=== PATIENT | male | born 1955 | race Caucasian/White ===

== ENCOUNTER 2019-02-27 06:20 | Day surgery (SDC) | payer BC ==
[2019-02-24 11:13] VITALS: BMI 36.9
[~2019-02-27 06:20] MED LIST: DEXAMETHASONE SOD PHOSPHATE 10 MG/ML 1 ML VIAL IV ONE; HEPARIN SODIUM,PORCINE 5,000 UNIT/ML 1 ML VIAL SQ ONE; MIDAZOLAM 2 MG/2 ML VIAL IV PRN; ONDANSETRON 4 MG/2 ML VIAL IVP ONE; SCOPOLAMINE 1.5MG/72HR PATCH TRANSDERM ONE
[2019-02-27] MEDS: LIDOCAINE 1% 20 ML VIAL (10MG/ML) FOR IV START INTRADERMA PRN ×2 (07:00→07:05)
[2019-02-27 07:21] LABS: Basophils % (A) 1 %; Eosinophils # (A) 0.2 k/uL (0-0.7); Eosinophils % (A) 3 %; HGB 15.2 gm/dL (13.0-17.5); Lymphocytes # (A) 1.2 k/uL (1.0-4.8); Lymphocytes % (A) 18 %; MCH 28.9 pg (25.0-35.0); MCV 87.5 fL (80.0-100.0); Mean Platelet Volume 7.1; Monocytes # (A) 0.6 k/uL (0-1.0); Monocytes % (A) 9 %; Neutrophils # (A) 4.4 k/uL (1.3-7.7); Neutrophils % (A) 68 %; Platelet Count 218 k/uL (150-450); RBC 5.26 m/uL (4.30-5.90); RDW 15.3 % (11.5-15.5); WBC 6.5 k/uL (3.8-10.6)
--- NOTE | 2019-02-27 07:25 | P.GSHP ---
History of Present Illness H&P Date: 02/27/19 CHIEF COMPLAINT: Inguinal hernia, left HISTORY OF PRESENT ILLNESS: The patient is a 63-year-old male who presents with a history of swelling and pain along the left groin. He's noted increased swelling including pain of the area. Now he presents for repair of his inguinal hernia. PAST MEDICAL HISTORY: Please see list. PAST SURGICAL HISTORY: Please see list. MEDICATIONS: Please see list. ALLERGIES: Please see list. SOCIAL HISTORY: No illicit drug use FAMILY HISTORY: No reports of Crohn disease or ulcerative colitis. REVIEW OF ORGAN SYSTEMS: CONSTITUTIONAL: No reports of fevers or chills. No reports of weight loss despite prior attempts. GI: Denies any blood in stools or constipation. PHYSICAL EXAM: VITAL SIGNS: Stable GENERAL: Well-developed pleasant male in no acute distress. HEENT: No scleral icterus. Extraocular movements grossly intact. Moist buccal mucosa. NECK: Supple without lymphadenopathy. CHEST: Unlabored respirations. Equal bilateral excursions. CARDIOVASCULAR: Regular rate and rhythm. Distal 2+ pulses. ABDOMEN: Soft, nondistended. No peritoneal signs. Palpable defect of the left groin. MUSCULOSKELETAL: No clubbing, cyanosis, or edema. ASSESSMENT: 1. Inguinal hernia, left PLAN: 1. Recommend proceeding with a robotic inguinal repair with mesh with possible bilateral approach. 2. Benefits and risks of surgical intervention was discussed including possibility of open technique. 3. DVT prophylaxis. 4. Antibiotic prophylaxis. Past Medical History Past Medical History: Hyperlipidemia, Hypertension, Thyroid Disorder Additional Past Medical History / Comment(s): THYROID NODULE, SEASONAL ALLERGIES. LT INGUINAL HERNIA. History of Any Multi-Drug Resistant Organisms: None Reported Past Surgical History: Cholecystectomy, Tonsillectomy Additional Past Surgical History / Comment(s): LARGE TUMOR EXC THROAT; CYST EXC SPINE. THYROID SURG. Past Anesthesia/Blood Transfusion Reactions: Motion Sickness Smoking Status: Never smoker - Past Family History Mother Family Medical History: No Reported History Medications and Allergies Home Medications Medication Instructions Recorded Confirmed Type Atorvastatin [Lipitor] 20 mg PO HS 05/11/15 02/27/19 History Cetirizine HCl [Zyrtec] 10 mg PO DAILY 05/11/15 02/27/19 History Cholecalciferol [Vitamin D3] 3,000 unit PO DAILY 05/11/15 02/27/19 History Lisinopril [Zestril] 40 mg PO QA 05/11/15 02/27/19 History Acetaminophen [Tylenol Extra 1,000 mg PO BID 02/24/19 02/27/19 History Strength] Metoclopramide HCl [Reglan] 10 mg PO TID PRN 02/24/19 02/27/19 History Multivitamin/Iron/Folic Acid 1 each PO DAILY 02/24/19 02/27/19 History [Centrum Adults Tablet] Allergies Allergy/AdvReac Type Severity Reaction Status Date / Time latex Allergy Swelling Verified 02/27/19 06:50 venom-honey bee Allergy Swelling Verified 02/27/19 06:50 [bee venom (honey bee)] Results - Labs 02/27/19 07:11
[2019-02-27 07:35] VITALS: TEMP 97.4
[2019-02-27] MEDS: LACTATED RINGERS 1,000 ML IV SCH ×2 (07:36→12:30)
[2019-02-27] MEDS ORDERED: NEOSTIGMINE 1 MG/ML 10 ML VIAL ONE (07:52)
[2019-02-27] MEDS ORDERED: ROCURONIUM BROMIDE 10 MG/ML 10 ML VIAL IV ONE (07:52)
[2019-02-27] MEDS ORDERED: PROPOFOL 10 MG/ML 20 ML VIAL IV ONE (07:52)
[2019-02-27] MEDS ORDERED: DEXAMETHASONE SOD PHOSPHATE 4 MG/ML 1 ML VIAL ONE (07:52)
[2019-02-27] MEDS ORDERED: LIDOCAINE 1% INJ 10MG/ML (20 ML MDV) ONE (07:52)
[2019-02-27] MEDS ORDERED: ROPIVACAINE 5 MG/ML 30 ML VIAL ONE (07:52)
[2019-02-27] MEDS ORDERED: SUCCINYLCHOLINE CHLORIDE VIAL 200 MG/10 ML VIAL IV ONE (07:52)
[2019-02-27] MEDS ORDERED: GLYCOPYRROLATE 0.2 MG/ML 2 ML VIAL ONE (07:52)
[2019-02-27] MEDS ORDERED: MIDAZOLAM 2 MG/2 ML VIAL ONE (07:52)
[2019-02-27] MEDS ORDERED: PHENYLEPHRINE-0.9% NACL SYG 1 MG/10 ML SYRINGE ONE (07:52)
[2019-02-27] MEDS ORDERED: fentaNYL (PF) 50 MCG/ML 2 ML AMP ONE (07:52)
[2019-02-27] MEDS: ceFAZolin 3 GM in SODIUM CHLORIDE 0.9% 100 ML IVPB ONE ×2 (07:57→08:43)
[2019-02-27] MEDS ORDERED: LIDOCAINE 1%-EPI 1:100,000 30 ML VIAL SQ ONE (08:43)
--- NOTE | 2019-02-27 09:00 | P.ANPRN ---
Procedure Note - Anesthesia - Nerve Block Performed Left Transversus Abdominis Single Time Out Performed: Yes Date of Procedure: 02/27/19 Procedure Start Time: 07:15 Procedure Stop Time: 07:26 Location of Patient Procedure: PreOp Indication: Acute Post-Operative Pain, Requested by physician Sedation Type: Sedate with meaningful contact maintained Preparation: Sterile Prep Position: Supine Needle Types: Pajunk Needle Gauge: 21 Technique: Ultrasound (ropi .5% 30cc plus dexamethasone 4mg) Blood Aspirated: No Pain Paresthesia on Injection Noted: No Resistance on Injection: Normal Events: Uneventful and Well Tolerated
--- NOTE | 2019-02-27 10:52 | P.OP ---
Date of Procedure: 02/27/19 Anesthesia: local Description of Procedure: Date of Procedure: 02/27/19 Description of Procedure: SURGEON: DEA GARCES MD PREOPERATIVE DIAGNOSES: 1. Initial left inguinal hernia 2. Right inguinal pain 3. Obstructive sleep apnea 4. Morbid obesity due to excess calories, BMI 37.0 5. Hyperlipidemia 6. Hypertensive heart disease POSTOPERATIVE DIAGNOSES: 1. Initial left inguinal hernia 2. Right inguinal pain 3. Obstructive sleep apnea 4. Morbid obesity due to excess calories, BMI 37.0 5. Hyperlipidemia 6. Hypertensive heart disease 7. Left incarcerated inguinal hernia with large bowel obstruction 8. Initial right inguinal hernia indirect reducible OPERATION: 1. Robotic-assisted da Tana Xi laparoscopic repair of initial incarcerated left indirect inguinal hernia with large bowel obstruction with mesh, 11.[address] 2. Resection of incarcerated left inguinal lipoma, 4 cm x 5cm 3. Robotic-assisted da Tana Xi laparoscopic repair of initial right indirect inguinal hernia with mesh, 11.[address] ESTIMATED BLOOD LOSS: 5 mL. SPECIMENS: 1. Incarcerated left inguinal hernia sac 2. Left inguinal lipoma COMPLICATIONS: None. Anesthesia: GETA, regional, local Operative Findings: 1. Pantaloon defect of the left side with direct inguinal hernia of large lipoma 2. Left indirect with incarcerated sigmoid colon and large bowel obstruction reduced without ischemia 3. Closure of defects using soft tissue repair of right side INDICATIONS: The patient is a 63-year-old male who presents with history of left inguinal hernia. Now he presents for definitive surgical intervention. Laparoscopic versus open and robotic approaches were discussed including bilateral approach. Benefits and risks including bleeding, infection, chronic groin pain were reviewed. Placement of mesh was also described. Informed consent was obtained. DESCRIPTION: In the preoperative area, an abdominal block was placed per anesthesia. The patient was brought to the operating room and initially laid in supine position. The abdomen had been prepped and draped in standard sterile fashion. Ioban draping was also placed. Prior to incision, a timeout protocol was confirmed with surgical team regarding patient's name including procedures to be performed. Initial positioning for the robotic assisted ports were selected whereby 20 cm s uperior to the target anatomy, 0 degree 5 mm laparoscopic trocar entry was performed at the left upper quadrant. The abdomen was insufflated to 15 mmHg which he had tolerated well. Diagnostic laparoscopy demonstrated no injury to bowel, viscera or mesentery. Incarcerated sigmoid colon was found along the left groin with a direct and indirect hernia. Next, along the epigastrium, 8 mm robot trocar was placed. An 8-mm robotic trocar was placed under direct visualization at the right upper quadrant. An 8 mm port was placed at the left upper quadrant. All trocars were positioned between 10-cm apart from each other. The ClusterFlunk XI robot was primed, draped, prepared for docking along upper abdomen of the patient. The patient was positioned 16 steep Trendelenburg position. I then went to the ClusterFlunk Xi console. The switchboard operator assistant was at bedside for exchange of the robot arms and equipment. A very large left inguinal defect was confirmed as the sigmoid colon was reduced from the left groin after direct pressure over the inguinal area was placed by the switchboard operator assistant. Next, careful attention along the left groin demonstrated 4-cm hernia with the sac extending to the scrotum. A large indirect and direct hernia was confirmed. The left inguinal hernia sac was evaginated whereby the peritoneum was scored using Endo scissors with cautery. As the hernia sac extended into the groin, complete resection of the sac was incomplete. Additionally, a 4 x 5 cm left inguinal lipoma was reduced. The peritoneal sac of the hernia was stripped along a tightly incarcerated inguinal hernia involving a large 4-cm left inguinal lipoma. The lipoma and sac was resected and then passed off for further pathological analysis. The size of the hernia defect was 4 cm with intraopera tive films obtained. A large left inguinal lipoma was also resected and passed off from the direct hernia. Using a 2-0 VLOC, the peritoneal defect of the right inguinal hernia site was closed using a running suture. The defect was found to be completely closed with complete reduction of the right direct inguinal hernia was confirmed. As an onlay, an 11.[address] mesh by HZO was initially cut in half and entered into the abdominal cavity via the 8 mm trocar. The mesh was tacked to the pelvis using 2-0 VLOC 9-inch length sutures. A final endoscopic imaging was obtained. The robot was undocked from the patient's bedside. I then rescrubbed into the case. Insufflation was released from the abdominal cavity and all instruments were removed from the abdominal cavity. The rest of incisions were reapproximated using 4-0 Monocryl in a running subcuticular fashion. Local anesthetic was placed along the incision including for a bilateral groin block. Incisions were cleansed using dilute hydrogen peroxide. Liquid glue was applied to the skin. At the end of the procedure, the needle, sponge and instrument counts had been verified correct by the certified surgical assistant. The patient had tolerated the procedure well and was taken to the postanesthesia care unit in stable condition. Plan - Discharge Summary Discharge Rx Participant: Yes New Discharge Prescriptions: New Ibuprofen [Motrin] 600 mg PO Q8HR PRN #30 tab PRN Reason: Pain HYDROcodone/APAP 5-325MG [Parkin 5-325] 1 tab PO Q6HR PRN 3 Days #10 tab PRN Reason: Pain Tamsulosin [Flomax] 0.4 mg PO DAILY #7 cap Continue Lisinopril [Zestril] 40 mg PO QAM Cholecalciferol [Vitamin D3 (25 Mcg = 1000 Iu)] 3,000 unit PO DAILY Cetirizine HCl [Zyrtec] 10 mg PO DAILY Atorvastatin [Lipitor] 20 mg PO HS Acetaminophen [Tylenol Extra Strength] 1,000 mg PO BID Metoclopramide HCl [Reglan] 10 mg PO TID PRN PRN Reason: MOTILITY Multivitamin/Iron/Folic Acid [Centrum Adults Tablet] 1 each PO DAILY Discharge Medication List Atorvastatin [Lipitor] 20 mg PO HS 05/11/15 [History] Cetirizine HCl [Zyrtec] 10 mg PO DAILY 05/11/15 [History] Cholecalciferol [Vitamin D3 (25 Mcg = 1000 Iu)] 3,000 unit PO DAILY 05/11/15 [History] Lisinopril [Zestril] 40 mg PO QAM 05/11/15 [History] Acetaminophen [Tylenol Extra Strength] 1,000 mg PO BID 02/24/19 [History] Metoclopramide HCl [Reglan] 10 mg PO TID PRN 02/24/19 [History] Multivitamin/Iron/Folic Acid [Centrum Adults Tablet] 1 each PO DAILY 02/24/19 [History] HYDROcodone/APAP 5-325MG [Parkin 5-325] 1 tab PO Q6HR PRN 3 Days #10 tab 02/27/19 [Rx] Ibuprofen [Motrin] 600 mg PO Q8HR PRN #30 tab 02/27/19 [Rx] Tamsulosin [Flomax] 0.4 mg PO DAILY #7 cap 02/27/19 [Rx] Follow up Appointment(s)/Referral(s): Dea Garces MD [STAFF PHYSICIAN] - 03/04/19 Patient Instructions/Handouts: *[facility]gery [facility] - (Anesthesia) Discharge Instructions Outpatient Surgery, Laparoscopic Herniorrhaphy (DC), Inguinal Hernia Repair (DC) Activity/Diet/Wound Care/Special Instructions: No lifting over 10 pounds 10 days, March 08. November shower. No bath tub soaks. Use medications for urinating. Discharge Disposition: HOME SELF-CARE
[2019-02-27] MEDS ORDERED: TAMSULOSIN 0.4 MG CAP.ER.24H PO STA (10:54)
[2019-02-27 10:55] VITALS: RESP 16
[2019-02-27] MEDS: HYDROmorphone 0.5 MG/0.5 ML SYRINGE IVP PRN ×2 (11:20→11:40)
[2019-02-27 13:11] VITALS: BP 128/74; PULSE 66
== END 2019-02-27 13:43 | disposition home or self-care (01) ==
LOC: OR 06:20
PROVIDERS: ATTEND Surgery Plastic and Reconstructive Surgery
DX: K40.00 Bilateral inguinal hernia, with obstruction, without gangrene, not specified as recurrent (principal); E66.01 Morbid (severe) obesity due to excess calories; E78.5 Hyperlipidemia, unspecified; G47.33 Obstructive sleep apnea (adult) (pediatric); I11.9 Hypertensive heart disease without heart failure; Z68.37 Body mass index [BMI] 37.0-37.9, adult; Z91.030 Bee allergy status; Z91.040 Latex allergy status; Z79.899 Other long term (current) drug therapy; Z88.0 Allergy status to penicillin; D17.79 Benign lipomatous neoplasm of other sites
CPT/HCPCS: 64488; 85025; 88302; 49650; C1781; J2250; J0330; J1644; J1100 ×2; J2710; J0690; J2405; J2001; J3010; J2795; J2370; J2704; J1170

== ENCOUNTER 2023-02-01 11:35 | Day surgery (SDC) | payer BC, MEDICARE ==
[~2023-02-01 11:35] MED LIST changes: -DEXAMETHASONE SOD PHOSPHATE 10 MG/ML 1 ML VIAL IV ONE; -HEPARIN SODIUM,PORCINE 5,000 UNIT/ML 1 ML VIAL SQ ONE; +LACTATED RINGERS 1,000 ML IV SCH; +LIDOCAINE 1% (10MG/ML) FOR IV START INTRADERMA PRN; -MIDAZOLAM 2 MG/2 ML VIAL IV PRN; -ONDANSETRON 4 MG/2 ML VIAL IVP ONE; -SCOPOLAMINE 1.5MG/72HR PATCH TRANSDERM ONE
[2023-02-01 12:02] VITALS: TEMP 97
[2023-02-01] MEDS ORDERED: PROPOFOL 10 MG/ML 20 ML VIAL IV ONE (12:39)
--- NOTE | 2023-02-01 12:46 | P.GSHP ---
History of Present Illness H&P Date: 02/01/23 CHIEF COMPLAINT: Colon screen HISTORY OF PRESENT ILLNESS: The patient is a 67-year-old male who presents for colon screen. Lower endoscopy was offered for further evaluation and management. PAST MEDICAL HISTORY: Please see list. PAST SURGICAL HISTORY: Please see list. MEDICATIONS: Please see list. ALLERGIES: Please see list. SOCIAL HISTORY: No illicit drug use FAMILY HISTORY: No reports of Crohn disease or ulcerative colitis. REVIEW OF ORGAN SYSTEMS: CONSTITUTIONAL: No reports of fevers or chills. PHYSICAL EXAM: VITAL SIGNS: Stable GENERAL: Well-developed pleasant in no acute distress. HEENT: No scleral icterus. Extraocular movements grossly intact. Moist buccal mucosa. NECK: Supple without lymphadenopathy. CHEST: Unlabored respirations. Equal bilateral excursions. CARDIOVASCULAR: Regular rate and rhythm. Distal 2+ pulses. ABDOMEN: Soft, nontender, nondistended. MUSCULOSKELETAL: No clubbing, cyanosis, or edema. ASSESSMENT: 1. Colon screen. PLAN: 1. Recommend proceeding with a lower endoscopy Past Medical History Past Medical History: Hyperlipidemia, Hypertension, Renal Disease, Thyroid Disorder Additional Past Medical History / Comment(s): Routine colonoscopy, past benign colon polyp, THYROID NODULE, SEASONAL ALLERGIES, LT INGUINAL HERNIA/pain, low back pain, decreased kidney function. History of Any Multi-Drug Resistant Organisms: None Reported Past Surgical History: Cholecystectomy, Joint Replacement, Tonsillectomy Additional Past Surgical History / Comment(s): COLONOSCOPIES, LARGE TUMOR EXC THROAT; CYST EXC SPINE. THYROID SURG/benign tumor. total R hip arthroplasty. Past Anesthesia/Blood Transfusion Reactions: Motion Sickness Additional Past Anesthesia/Blood Transfusion Reaction / Comment(s): Pt has never received blood. Smoking Status: Never smoker - Past Family History Father Family Medical History: No Reported History Mother Family Medical History: No Reported History Medications and Allergies Home Medications Medication Instructions Recorded Confirmed Type Atorvastatin [Lipitor] 40 mg PO HS 05/11/15 01/31/23 History Cholecalciferol [Vitamin D3 (25 3,000 unit PO QAM 05/11/15 02/01/23 History Mcg = 1000 Iu)] lisinopriL [Zestril] 40 mg PO HS 05/11/15 01/31/23 History Multivitamin/Iron/Folic Acid 1 each PO DAILY 02/24/19 01/31/23 History [Centrum Adults Tablet] Chlorthalidone 25 mg PO QAM 01/31/23 01/31/23 History Multivitamin [Multivitamins Adult 1 tab PO QAM 01/31/23 01/31/23 History Gummies] NIFEdipine [Procardia XL] 90 mg PO QAM 01/31/23 02/01/23 History carvediloL 25 mg PO BID 01/31/23 02/01/23 History cloNIDine HCL [Catapres] 0.3 mg PO BID 01/31/23 01/31/23 History traZODone HCL 100 mg PO HS 01/31/23 01/31/23 History Allergies Allergy/AdvReac Type Severity Reaction Status Date / Time latex Allergy Swelling Verified 02/01/23 11:55 Penicillins Allergy Swelling Verified 02/01/23 11:55 venom-honey bee Allergy Swelling Verified 02/01/23 11:55 [bee venom (honey bee)] Surgical - Exam Vital Signs Temp Pulse Resp BP Pulse Ox 97.0 F L 67 18 104/61 95 02/01/23 11:55 02/01/23 11:55 02/01/23 11:55 02/01/23 11:55 02/01/23 11:55
--- NOTE | 2023-02-01 13:09 | P.PCN ---
Date of Procedure: 02/01/23 Description of Procedure: PREOPERATIVE DIAGNOSIS: Colonoscopy screening. Personal history colon polyps POSTOPERATIVE DIAGNOSIS: Colonoscopy screening. Personal history colon polyps OPERATION: Colonoscopy to the cecum, ileocecal valve and appendiceal orifice. SURGEON: Dea Garces MD. ANESTHESIA: MAC. INDICATIONS: The patient is a 67-year-old male who presents for colonoscopy screening. Benefits and risks were described and informed consent was obtained. DESCRIPTION OF PROCEDURE: The patient had undergone Gatorade prep. The patient had been brought into the operating room and laid in the left lateral decubitus position. After adequate intravenous sedation, the rectum was examined with 2% lidocaine jelly. No external hemorrhoids were encountered. The rectal tone was within normal limits. No lesions were palpated in the rectal vault. An Olympus colonoscope was advanced until the cecum, ileocecal valve and appendiceal orifice were clearly viewed. The prep was good. No scattered diverticulosis was encountered. No colonic polyps were found. No evidence of focal colitis was found. Retroflexion of the scope demonstrated grade 1 internal hemorrhoids without active bleeding or inflammation. The colon was desufflated. The patient had tolerated the procedure well. Withdrawal time was over 6 minutes. FINDINGS: Aronchick preparation quality scale 2 (1-5) Internal hemorrhoids, grade 1 No external prolapsed hemorrhoids. No arteriovenous malformations. No adenomatous polyps. No focal colitis. RECOMMENDATIONS: Lower endoscopy in 5 years, 2027. Plan - Discharge Summary Discharge Rx Participant: No New Discharge Prescriptions: Continue lisinopriL [Zestril] 40 mg PO HS Cholecalciferol [Vitamin D3 (25 Mcg = 1000 Iu)] 3,000 unit PO QAM Atorvastatin [Lipitor] 40 mg PO HS Multivitamin/Iron/Folic Acid [Centrum Adults Tablet] 1 each PO DAILY cloNIDine HCL [Catapres] 0.3 mg PO BID traZODone HCL 100 mg PO HS Multivitamin [Multivitamins Adult Gummies] 1 tab PO QAM carvediloL 25 mg PO BID NIFEdipine [Procardia XL] 90 mg PO QAM Chlorthalidone 25 mg PO QAM Discharge Medication List Atorvastatin [Lipitor] 40 mg PO HS 05/11/15 [History] Cholecalciferol [Vitamin D3 (25 Mcg = 1000 Iu)] 3,000 unit PO QAM 05/11/15 [History] lisinopriL [Zestril] 40 mg PO HS 05/11/15 [History] Multivitamin/Iron/Folic Acid [Centrum Adults Tablet] 1 each PO DAILY 02/24/19 [History] Chlorthalidone 25 mg PO QAM 01/31/23 [History] Multivitamin [Multivitamins Adult Gummies] 1 tab PO QAM 01/31/23 [History] NIFEdipine [Procardia XL] 90 mg PO QAM 01/31/23 [History] carvediloL 25 mg PO BID 01/31/23 [History] cloNIDine HCL [Catapres] 0.3 mg PO BID 01/31/23 [History] traZODone HCL 100 mg PO HS 01/31/23 [History] Follow up Appointment(s)/Referral(s): Dea Garces MD [STAFF PHYSICIAN] - 02/27/23 9:30 am Patient Instructions/Handouts: *[facility] - (Anesthesia) Discharge Instructions Outpatient Surgery Activity/Diet/Wound Care/Special Instructions: Repeat colonoscopy in 5 years2027 Discharge Disposition: HOME SELF-CARE
[2023-02-01 13:22] VITALS: RESP 20
[2023-02-01 13:35] VITALS: BP 108/60; PULSE 78
== END 2023-02-01 13:45 | disposition home or self-care (01) ==
LOC: ORWHC2ENDO 11:35
PROVIDERS: ATTEND Surgery Plastic and Reconstructive Surgery
DX: Z12.11 Encounter for screening for malignant neoplasm of colon (principal); K64.0 First degree hemorrhoids; I10 Essential (primary) hypertension; E78.5 Hyperlipidemia, unspecified; E03.9 Hypothyroidism, unspecified; N28.9 Disorder of kidney and ureter, unspecified; Z90.49 Acquired absence of other specified parts of digestive tract; Z79.899 Other long term (current) drug therapy; Z91.040 Latex allergy status; Z88.0 Allergy status to penicillin; Z91.030 Bee allergy status
CPT/HCPCS: J2704; G0121

== ENCOUNTER → 2023-03-09 | Day surgery (SDC) | payer MEDICARE ==
[2023-03-05 15:42] VITALS: BMI 36.5
[~2023-03-09] MED LIST changes: +ACETAMINOPHEN TAB 500 MG TAB PO PRN; +DEXAMETHASONE SOD PHOSPHATE 4 MG/ML 1 ML VIAL IVP ONE; +GLYCOPYRROLATE 0.2 MG/ML 2 ML VIAL ONE; +HEPARIN SODIUM,PORCINE/PF 5,000 UNIT/0.5 ML SYRINGE SQ PRN; +HYDROmorphone (PF) 1 MG/ML ONE; +HYDROmorphone 0.5 MG/0.5 ML SYRINGE IVP PRN; +LACTATED RINGERS 1,000 ML IV ONE; -LIDOCAINE 1% (10MG/ML) FOR IV START INTRADERMA PRN; +LIDOCAINE 1%-EPI 1:100,000 50 ML VIAL SQ ONE; +LIDOCAINE 2% INJ 20 MG/ML (2 ML VIAL) ONE; +MELOXICAM 7.5 MG TAB PO PRN; +MIDAZOLAM 2 MG/2 ML VIAL IV PRN; +MIDAZOLAM 2 MG/2 ML VIAL ONE; +NEOSTIGMINE 1 MG/ML 10 ML VIAL ONE; +ONDANSETRON 4 MG/2 ML VIAL IVP PRN; +PHENYLEPHRINE-0.9% NACL SYG 1,000 MCG/10 ML SYRINGE ONE; +PROPOFOL 10 MG/ML 20 ML VIAL IV ONE; +ROCURONIUM 10 MG/ML (5 ML VIAL) IV ONE; +SUCCINYLCHOLINE CHLORIDE 200 MG/10 ML VIAL IV ONE; +TAMSULOSIN 0.4 MG CAP.ER.24H PO STA; +fentaNYL (PF) 50 MCG/ML 2 ML AMP ONE; +oxyCODONE-APAP 7.5-325MG 1 EACH TAB PO PRN
--- NOTE | 2023-03-09 06:32 | P.GSHP ---
History of Present Illness H&P Date: 03/09/23 CHIEF COMPLAINT: Inguinal hernia, bilateral HISTORY OF PRESENT ILLNESS: The patient is a 67-year-old male who presents with a history of swelling and pain along the groins. He has had prior repair of inguinal hernias. He's noted increased swelling including pain of the area. Now he presents for exploration and repair of recurrent inguinal hernia. PAST MEDICAL HISTORY: Please see list. PAST SURGICAL HISTORY: Please see list. MEDICATIONS: Please see list. ALLERGIES: Please see list. SOCIAL HISTORY: No illicit drug use FAMILY HISTORY: No reports of Crohn disease or ulcerative colitis. REVIEW OF ORGAN SYSTEMS: CONSTITUTIONAL: No reports of fevers or chills. No reports of weight loss despite prior attempts. GI: Denies any blood in stools or constipation. PHYSICAL EXAM: VITAL SIGNS: Stable GENERAL: Well-developed pleasant male in no acute distress. HEENT: No scleral icterus. Extraocular movements grossly intact. Moist buccal mucosa. NECK: Supple without lymphadenopathy. CHEST: Unlabored respirations. Equal bilateral excursions. CARDIOVASCULAR: Regular rate and rhythm. Distal 2+ pulses. ABDOMEN: Soft, nondistended. No peritoneal signs. Palpable defect of the groin MUSCULOSKELETAL: No clubbing, cyanosis, or edema. ASSESSMENT: 1. Inguinal hernia, bilateral PLAN: 1. Recommend proceeding with a robotic inguinal repair with mesh with bilateral approach. 2. Benefits and risks of surgical intervention was discussed including possibility of open technique. 3. DVT prophylaxis. 4. Antibiotic prophylaxis. 5. Non narcotic pain management including abdominal wall block described 6. Blood sugar glucose described. 7. Weight loss management described. Past Medical History Past Medical History: Hyperlipidemia, Hypertension, Renal Disease, Thyroid Disorder Additional Past Medical History / Comment(s): past benign colon polyp, THYROID NODULE, SEASONAL ALLERGIES, LT INGUINAL HERNIA/pain, low back pain, decreased kidney function. History of Any Multi-Drug Resistant Organisms: None Reported Past Surgical History: Cholecystectomy, Joint Replacement, Tonsillectomy Additional Past Surgical History / Comment(s): COLONOSCOPIES, LARGE TUMOR EXC THROAT, CYST EXC SPINE, THYROID SURG/benign tumor, total R hip arthroplasty. Past Anesthesia/Blood Transfusion Reactions: Motion Sickness Additional Past Anesthesia/Blood Transfusion Reaction / Comment(s): Pt has never received blood. Past Psychological History: Anxiety, Depression Smoking Status: Never smoker Past Alcohol Use History: Occasional Additional Past Alcohol Use History / Comment(s): DRINKS FEW BEER ON WEEKENDS. Past Drug Use History: None Reported - Past Family History Father Family Medical History: No Reported History Mother Family Medical History: No Reported History Medications and Allergies Home Medications Medication Instructions Recorded Confirmed Type Atorvastatin [Lipitor] 40 mg PO HS 05/11/15 03/05/23 History Cholecalciferol [Vitamin D3 (25 3,000 unit PO QAM 05/11/15 03/05/23 History Mcg = 1000 Iu)] lisinopriL [Zestril] 40 mg PO HS 05/11/15 03/05/23 History Chlorthalidone 25 mg PO QAM 01/31/23 03/05/23 History Multivitamin [Multivitamins Adult 1 tab PO QAM 01/31/23 03/05/23 History Gummies] NIFEdipine [Procardia XL] 90 mg PO QAM 01/31/23 03/05/23 History carvediloL 25 mg PO BID 01/31/23 03/05/23 History cloNIDine HCL [Catapres] 0.3 mg PO BID 01/31/23 03/05/23 History traZODone HCL 100 mg PO HS 01/31/23 03/05/23 History Allergies Allergy/AdvReac Type Severity Reaction Status Date / Time latex Allergy Swelling Verified 03/05/23 15:34 Penicillins Allergy Swelling Verified 03/05/23 15:34 venom-honey bee Allergy Swelling Verified 03/05/23 15:34 [bee venom (honey bee)]
[2023-03-09 12:55] LABS: Glucose,Whole Blood 103 mg/dL (70-110)
[2023-03-09 13:11] LABS: Basophils % (A) 0 %; Eosinophils # (A) 0.1 k/uL (0-0.7); Eosinophils % (A) 1 %; HCT 39.2 % (39.0-53.0); HGB 13.5 gm/dL (13.0-17.5); Lymphocytes # (A) 1.7 k/uL (1.0-4.8); Lymphocytes % (A) 16 %; MCH 29.8 pg (25.0-35.0); MCHC 34.3 g/dL (31.0-37.0); MCV 86.8 fL (80.0-100.0); Mean Platelet Volume 7.5; Monocytes # (A) 0.6 k/uL (0-1.0); Monocytes % (A) 5 %; Neutrophils # (A) 7.8 k/uL (1.3-7.7); Neutrophils % (A) 76 %; Platelet Count 229 k/uL (150-450); RBC 4.52 m/uL (4.30-5.90); WBC 10.3 k/uL (3.8-10.6)
[2023-03-09 13:17] LABS: ALT 36 U/L (4-49); AST 29 U/L (17-59); African American GFR (CKD) 50 (>60 ml/min/1.73 sqM); Albumin 4.5 g/dL (3.5-5.0); Alkaline Phosphatase 87 U/L (38-126); Anion Gap 11 mmol/L; Blood Urea Nitrogen 31 mg/dL (9-20); Carbon Dioxide 22 mmol/L (22-30); Chloride 109 mmol/L (98-107); Glucose 104 mg/dL (74-99); Non-African American GFR(CKD) 43 (>60 ml/min/1.73 sqM); Potassium 4.6 mmol/L (3.5-5.1); Sodium 142 mmol/L (137-145); Total Bilirubin 0.5 mg/dL (0.2-1.3); Total Protein 7.3 g/dL (6.3-8.2)
[2023-03-09 16:53] VITALS: TEMP 97.9
[2023-03-09 17:50] VITALS: BP 132/71; PULSE 55; RESP 16
--- NOTE | 2023-04-09 11:59 | P.OP ---
Date of Procedure: 04/09/23 Description of Procedure: SURGEON: DEA GARCES MD PREOPERATIVE DIAGNOSES: 1. Left inguinal pain 2. History of bilateral inguinal hernia repair 3. Morbid obesity due to excess calories, BMI 36.2 4. Hypertensive heart disease without congestive heart failure 5. Hyperlipidemia 6. Hypertensive heart disease with stage III chronic renal disease 7. Generalized anxiety disorder 8. Depressive disorder 9. Motion sickness POSTOPERATIVE DIAGNOSES: 1. Recurrent bilateral inguinal hernia 2. History of bilateral inguinal hernia repair 3. Morbid obesity due to excess calories, BMI 36.2 4. Hypertensive heart disease without congestive heart failure 5. Hyperlipidemia 6. Hypertensive heart disease with stage III chronic renal disease 7. Generalized anxiety disorder 8. Depressive disorder 9. Motion sickness 10. Subfascial left inguinal lipoma 5 x 2 cm 11. Subfascial right inguinal lipoma 10 x 4 cm 12. Pelvic adhesions OPERATION: 1. Robotic-assisted da Tana Xi laparoscopic lysis of pelvic adhesions over 30 minutes 2. Robotic-assisted da Tana Xi laparoscopic reduction repair of initial incarcerated left indirect inguinal hernia with mesh, 11.[address] 3. Robotic-assisted da Tana Xi laparoscopic reduction repair of initial incarcerated right indirect inguinal hernia with mesh, 11.[address] ANESTHESIA: General with local anesthetic ESTIMATED BLOOD LOSS: 5 mL. SPECIMENS: 1. Incarcerated left inguinal hernia sac with lipoma 2. Incarcerated right inguinal hernia sac with lipoma COMPLICATIONS: None. FINDINGS: 1. Incarcerated left direct inguinal hernia over 3 x 3 cm, Nyhus IV, 2. Incarcerated right direct inguinal hernia over 3 x 3 cm, Nyhus IV with 10 x 4 cm subfascial inguinal lipoma 3. Moderate adhesions bilateral pelvis lysed sharply using scissors, but 30 minutes INDICATIONS: The patient is a 68-year-old male who presents with history of prior repair of bilateral inguinal hernias. Reports recurrent pain and swelling along the left groin. Now he presents for definitive surgical intervention. Laparoscopic versus open and robotic approaches were discussed including bilateral approach. Benefits and risks including bleeding, infection, chronic groin pain, sterility were reviewed. Placement of mesh was also described. Informed consent was obtained. DESCRIPTION: In the preoperative area, an abdominal block was placed per anesthesia. The patient was brought to the operating room and initially laid in supine position. The abdomen had been prepped and draped in standard sterile fashion. Ioban draping was also placed. Prior to incision, a timeout protocol was confirmed with surgical team regarding patient's name including procedures to be performed. Initial positioning for the robotic assisted ports were selected 20 cm superior to the target anatomy. A 0 degree 5 mm laparoscopic trocar entry was performed at the left upper quadrant. The abdomen was insufflated to 15 mmHg which he tolerated well. Diagnostic laparoscopy demonstrated no injury to bowel, viscera or mesentery. Moderate adhesions along the pelvis was identified. Next, along the epigastrium, 8 mm robot trocar was placed. An 8-mm robotic trocar was placed under direct visualization at the right upper quadrant. An 8 mm port was placed at the left upper quadrant. All trocars were positioned between 10-cm apart from each other. A 12 mm accessory trocar was placed along the right upper lateral abdominal wall. The Divitel XI robot was primed, draped, prepared for docking along upper abdomen of the patient. The patient was positioned 21 steep Trendelenburg position. I then went to the Divitel Xi console. The visual merchandising assistant was at bedside for exchange of the robot arms and equipment. Attention was brought to the left groin. Moderate pelvic adhesions were identified and addressed using electro-Bovie cautery with scissors. Adhesions over 30 minutes were lysed using combination of vessel sealer as well. Next, the left groin defect was measured 3 x 3-cm hernia direct with new defect, Nyhus type IV. Prior mesh confirmed previous repair of indirect hernia. The left inguinal hernia sac was evaginated whereby the peritoneum was scored using Endo scissors with cautery. As the hernia sac extended into the groin, complete resection of the sac was done. The peritoneal sac of the hernia was stripped. The sac including 5 x 3 cm subfascial inguinal hernia lipoma was resected and then passed off for further pathological analysis. The size of the hernia defect was 3 cm x 3 cm with intraoperative films obtained. Using a 2-0 VLOC, the peritoneal defect of the left inguinal hernia site was closed using a running suture. The defect was found to be completely closed with complete reduction of the left direct inguinal hernia was confirmed. As an onlay, an 11.[address] mesh by Kereos was cut in half and entered into the abdominal cavity via the 8 mm trocar. The mesh was tacked to the pelvis using 2-0 VLOC 9-inch length sutures. Attention was brought to the right groin. Prior mesh repair for indirect hernia was confirmed. Defect involving the direct hernia was found. Next, the right groin defect was measured 3 x 3-cm hernia with the sac and 10 x 5 cm subfascial inguinal lipoma removed. A large direct hernia was confirmed, Nyhus type IV. The right inguinal hernia sac was evaginated whereby the peritoneum was scored using Endo scissors with cautery. As the hernia sac extended into the groin, complete resection of the sac was done. The peritoneal sac of the hernia was stripped. The sac was resected and then passed off for further pathological analysis. The size of the hernia defect was 3 cm x 3 cm with intraoperative films obtained. Using a nonabsorbable 2-0 VLOC, the peritoneal defect of the right inguinal hernia site was closed using a running suture. The defect was found to be completely closed with complete reduction of the right direct inguinal hernia was confirmed. As an onlay, an 11.[address] mesh by Kereos was cut in half and entered into the abdominal cavity via the 8 mm trocar. The mesh was tacked to the pelvis using 2-0 VLOC 9-inch length sutures. A final endoscopic imaging was obtained. The robot was undocked from the patient's bedside. I then rescrubbed into the case. Insufflation was released from the abdominal cavity and all instruments were removed from the abdominal cavity. Pressure was applied along the the bilateral groin. The rest of incisions were reapproximated using 4-0 Monocryl in a running subcuticular fashion. Local anesthetic was placed along the incision including for a bilateral groin block. Incisions were cleansed using dilute hydrogen peroxide. Liquid glue was applied to the skin. At the end of the procedure, the needle, sponge and instrument counts had been verified correct by the plant facilities technician. The patient had tolerated the procedure well and was taken to the postanesthesia care unit in stable condition. Intraoperative images were reviewed with the patient's family who were pleased with the level of care. Plan - Discharge Summary Discharge Rx Participant: Yes New Discharge Prescriptions: New Acetaminophen Tab [Tylenol Tab] 1,000 mg PO Q6HR PRN #30 tablet PRN Reason: Pain Tamsulosin [Flomax] 0.4 mg PO DAILY #5 cap Simethicone [Gas-X] 125 mg PO AC-TID PRN #20 capsule PRN Reason: Pain Ibuprofen [Motrin] 600 mg PO Q8HR PRN #30 tab PRN Reason: Pain Continue lisinopriL [Zestril] 40 mg PO HS Cholecalciferol [Vitamin D3 (25 Mcg = 1000 Iu)] 3,000 unit PO QAM Atorvastatin [Lipitor] 40 mg PO HS cloNIDine HCL [Catapres] 0.3 mg PO BID traZODone HCL 100 mg PO HS Multivitamin [Multivitamins Adult Gummies] 1 tab PO QAM carvediloL 25 mg PO BID NIFEdipine [Procardia XL] 90 mg PO QAM Chlorthalidone 25 mg PO QAM Discharge Medication List Atorvastatin [Lipitor] 40 mg PO HS 05/11/15 [History] Cholecalciferol [Vitamin D3 (25 Mcg = 1000 Iu)] 3,000 unit PO QAM 05/11/15 [History] lisinopriL [Zestril] 40 mg PO HS 05/11/15 [History] Chlorthalidone 25 mg PO QAM 01/31/23 [History] Multivitamin [Multivitamins Adult Gummies] 1 tab PO QAM 01/31/23 [History] NIFEdipine [Procardia XL] 90 mg PO QAM 01/31/23 [History] carvediloL 25 mg PO BID 01/31/23 [History] cloNIDine HCL [Catapres] 0.3 mg PO BID 01/31/23 [History] traZODone HCL 100 mg PO HS 01/31/23 [History] Acetaminophen Tab [Tylenol Tab] 1,000 mg PO Q6HR PRN #30 tablet 03/09/23 [Rx] Ibuprofen [Motrin] 600 mg PO Q8HR PRN #30 tab 03/09/23 [Rx] Simethicone [Gas-X] 125 mg PO AC-TID PRN #20 capsule 03/09/23 [Rx] Tamsulosin [Flomax] 0.4 mg PO DAILY #5 cap 03/09/23 [Rx] Follow up Appointment(s)/Referral(s): Dea Garces MD [STAFF PHYSICIAN] - 03/13/23 Patient Instructions/Handouts: *Surgery [facility] - (Anesthesia) Discharge Instructions Outpatient Surgery, Laparoscopic Herniorrhaphy (IP) Activity/Diet/Wound Care/Special Instructions: TELEHEALTH - DR WILL CALL YOU BETWEEN 8 am to 8 pm Using antibacterial soap. No lifting over 4 pounds 4 weeks, Apr 09November shower. No bathtub soaks for 2 weeks, Mar 21 Use ice along incisions for today to prevent swelling. Take tylenol, aleve/ibuprofen, simethicone scheduled for 3 days for best pain relief Discharge Disposition: HOME SELF-CARE
== END | disposition home or self-care (01) ==
LOC: OR 12:04
PROVIDERS: ATTEND Surgery Plastic and Reconstructive Surgery
DX: D17.1 Benign lipomatous neoplasm of skin and subcutaneous tissue of trunk (principal); K40.21 Bilateral inguinal hernia, without obstruction or gangrene, recurrent; I12.9 Hypertensive chronic kidney disease with stage 1 through stage 4 chronic kidney disease, or unspecified chronic kidney disease; N18.30 Chronic kidney disease, stage 3 unspecified; F41.1 Generalized anxiety disorder; E66.01 Morbid (severe) obesity due to excess calories; Z68.36 Body mass index [BMI] 36.0-36.9, adult; E78.5 Hyperlipidemia, unspecified; Z87.19 Personal history of other diseases of the digestive system; Z90.89 Acquired absence of other organs; Z90.49 Acquired absence of other specified parts of digestive tract; Z91.040 Latex allergy status; Z88.0 Allergy status to penicillin; Z91.030 Bee allergy status; Z79.899 Other long term (current) drug therapy
CPT/HCPCS: 88304; 80053; 85025; 49650; C1781; J2250; J0330; J1100; J2710; J0690; J2405; J3010; J1170 ×2; J2704; J2001; J2371

== ENCOUNTER → 2024-09-30 | Outpatient (CLI) | payer MEDICARE ==
[2024-09-30 15:56] LABS: INR 0.9 (<1.2); Partial Thromboplastin Time 23.9 sec (22.0-30.0); Prothrombin Time 10.5 sec (10.0-12.5)
[2024-09-30 18:17] LABS: HCT 38.3 % (39.6-50.0); HGB 12.9 g/dL (13.0-17.0); MCH 29.3 pg (27.0-32.0); MCHC 33.7 g/dL (32.0-37.0); Mean Platelet Volume 10.3 FL (9.5-12.2); NRBC Per 100 WBC 0 X 10*3/uL (0.00-0.01); Platelet Count 239 X 10*3/uL (140-440); RDW 13.4 % (11.5-14.5); WBC 8.39 X 10*3/uL (4.50-10.00)
[2024-09-30 18:24] LABS: ALT 30 U/L (10-49); AST 24 U/L (14-35); Albumin 4.5 g/dL (3.8-4.9); Albumin/Globulin Ratio 2.05 Ratio (1.60-3.17); Alkaline Phosphatase 105 U/L (41-126); BUN/Creat Ratio 13.08 Ratio (12.00-20.00); Blood Urea Nitrogen 32.7 mg/dL (9.0-27.0); Calcium 9.6 mg/dL (8.7-10.3); Carbon Dioxide 23.3 mmol/L (21.6-31.8); Chloride 106 mmol/L (96-109); Globulin 2.2 g/dL (1.6-3.3); Glucose 102 mg/dL (70-110); Potassium 4.4 mmol/L (3.5-5.5); Sodium 140 mmol/L (135-145); Total Bilirubin 0.3 mg/dL (0.3-1.2); Total Protein 6.7 g/dL (6.2-8.2)
== END | disposition home or self-care (01) ==
LOC: LABPAT 14:54
PROVIDERS: ATTEND Orthopaedic Surgery
DX: Z01.818 Encounter for other preprocedural examination (principal); Z22.322 Carrier or suspected carrier of Methicillin resistant Staphylococcus aureus; M16.12 Unilateral primary osteoarthritis, left hip
CPT/HCPCS: 80053; 85027; 85610; 85730; 86850; 86900; 86901; 87070; 93005

== ENCOUNTER 2024-10-07 05:31 | Day surgery (SDC) | payer MEDICARE ==
[~2024-10-07 05:31] MED LIST changes: -ACETAMINOPHEN TAB 500 MG TAB PO PRN; -DEXAMETHASONE SOD PHOSPHATE 4 MG/ML 1 ML VIAL IVP ONE; -GLYCOPYRROLATE 0.2 MG/ML 2 ML VIAL ONE; -HEPARIN SODIUM,PORCINE/PF 5,000 UNIT/0.5 ML SYRINGE SQ PRN; -HYDROmorphone (PF) 1 MG/ML ONE; -HYDROmorphone 0.5 MG/0.5 ML SYRINGE IVP PRN; -LACTATED RINGERS 1,000 ML IV ONE; -LACTATED RINGERS 1,000 ML IV SCH; -LIDOCAINE 1%-EPI 1:100,000 50 ML VIAL SQ ONE; -LIDOCAINE 2% INJ 20 MG/ML (2 ML VIAL) ONE; -MELOXICAM 7.5 MG TAB PO PRN; -MIDAZOLAM 2 MG/2 ML VIAL IV PRN; -MIDAZOLAM 2 MG/2 ML VIAL ONE; -NEOSTIGMINE 1 MG/ML 10 ML VIAL ONE; -ONDANSETRON 4 MG/2 ML VIAL IVP PRN; -PHENYLEPHRINE-0.9% NACL SYG 1,000 MCG/10 ML SYRINGE ONE; -PROPOFOL 10 MG/ML 20 ML VIAL IV ONE; -ROCURONIUM 10 MG/ML (5 ML VIAL) IV ONE; -SUCCINYLCHOLINE CHLORIDE 200 MG/10 ML VIAL IV ONE; -TAMSULOSIN 0.4 MG CAP.ER.24H PO STA; +TRANEXAMIC 1,000 MG/100ML-NACL 1,000 MG in SALINE 1 100ML.BAG IVPB PRN; -fentaNYL (PF) 50 MCG/ML 2 ML AMP ONE; -oxyCODONE-APAP 7.5-325MG 1 EACH TAB PO PRN
[2024-10-07] MEDS: ACETAMINOPHEN TAB 500 MG TAB PO PRN (06:17)
[2024-10-07] MEDS: MELOXICAM 7.5 MG TAB PO PRN (06:17)
[2024-10-07] MEDS: LIDOCAINE 1% (10MG/ML) FOR IV START INTRADERMA PRN (06:18)
[2024-10-07] MEDS: LACTATED RINGERS 1,000 ML IV SCH (06:18)
[2024-10-07] MEDS: GABAPENTIN 300 MG CAP PO PRN (06:18)
[2024-10-07] MEDS: DEXAMETHASONE SOD PHOSPHATE 4 MG/ML 1 ML VIAL IV ONE (06:18)
[2024-10-07] MEDS: ONDANSETRON 4 MG/2 ML VIAL IVP ONE (06:18)
[2024-10-07] MEDS: IV FLUID CONTINUATION 1,000 ML IV ONE (06:20)
[2024-10-07] MEDS: MIDAZOLAM 2 MG/2 ML VIAL IV PRN (06:46)
[2024-10-07] MEDS: fentaNYL (PF) 50 MCG/ML 2 ML AMP IVP PRN (06:46)
[2024-10-07] MEDS ORDERED: DEXAMETHASONE SOD PHOSPHATE 4 MG/ML 1 ML VIAL ONE (06:55)
[2024-10-07] MEDS ORDERED: fentaNYL (PF) 50 MCG/ML 2 ML AMP ONE (06:55)
[2024-10-07] MEDS ORDERED: ROPIVACAINE 5 MG/ML 30 ML VIAL ONE (06:55)
[2024-10-07] MEDS ORDERED: LIDOCAINE 1% INJ 10MG/ML (20 ML MDV) ONE (06:55)
[2024-10-07] MEDS ORDERED: PROPOFOL 10 MG/ML 20 ML VIAL IV ONE (06:55)
[2024-10-07] MEDS ORDERED: SUCCINYLCHOLINE CHLORIDE 200 MG/10 ML VIAL IV ONE (06:55)
[2024-10-07] MEDS ORDERED: KETAMINE HCL IN 0.9 % NACL 50 MG/5 ML SYRINGE ONE (06:55)
[2024-10-07] MEDS ORDERED: TRANEXAMIC 1,000 MG/100ML-NACL PREMIX BAG ONE (06:55)
[2024-10-07] MEDS ORDERED: MIDAZOLAM 2 MG/2 ML VIAL ONE (06:55)
[2024-10-07] MEDS: ceFAZolin 1,000 MG in SODIUM CHLORIDE 0.9% 1,000 ML IRRIGATION ONE (07:00)
--- NOTE | 2024-10-07 07:13 | P.ANPRN ---
Procedure Note - Anesthesia - Nerve Block Performed Left Leo Single Time Out Performed: Yes Date of Procedure: 10/07/24 Procedure Start Time: 06:46 Procedure Stop Time: 06:52 Location of Patient: PreOp Indication: Acute Post-Operative Pain, Requested by Surgeon Sedation Type: Sedate with meaningful contact maintained Preparation: Sterile Prep Position: Supine Needle Types: Pajunk Needle Gauge: 21 Ultrasound used to visualize needle placement: Yes Ultrasound used to observe medication spread: Yes Injectate: 0.5% Ropivacaine (see comment for volume) (30 mL +4 mg dexamethasone) Blood Aspirated: No Pain Paresthesia on Injection Noted: No Resistance on Injection: Normal Image Stored and Saved: Yes Events: Uneventful and Well Tolerated
[2024-10-07] MEDS: ROPIVACAINE 5 MG/ML 30 ML VIAL MISCELLANE ONE ×2 (07:46→08:04)
--- NOTE | 2024-10-07 08:10 | P.OP ---
Date of Procedure: 10/07/24 Preoperative Diagnosis: Severe osteoarthritis left hip Postoperative Diagnosis: Severe osteoarthritis left hip Procedure(s) Performed: Left total hip arthroplasty with a direct anterior approach Implants: [employer] Polarstem standard size 5 with a collar [employer] R3, 3 hole hemispherical acetabular shell, 56 mm [employer] Reflection 6.5 mm cancellus screws, 20 mm 2 [employer] R3, XLPE 20 acetabular liner [employer]hew Oxinium femoral head 36 mm, +8 All components were press-fit. The articulation is Oxinium on polyethylene. Anesthesia: GETA Surgeon: Himanshu Tran Cra Officer #1: Mary Noonan Estimated Blood Loss (ml): 700 Pathology: none sent Condition: stable Disposition: PACU Indications for Procedure: After failure of conservative treatment we discussed the surgical and nonsurgic al treatment options at length. Patient wishes to proceed with a total hip arthroplasty with a direct anterior approach. Complications specific to this procedure were discussed at length, including but not limited to infection, leg length discrepancy, dislocation, nerve injury, and fracture. Covid-19 was also discussed at length with the patient, and they are aware of the current policies and procedures. The patient was given the option of delaying surgery, but they elect to proceed knowing these risks. Patient is aware of all these complications and informed consent was obtained Operative Findings: The operative findings are consistent with severe osteoarthritis of the left hip Description of Procedure: The patient was seen and evaluated in the preoperative area and the consent was reviewed. The operative site was marked with a skin marker. The patient verified the procedure and operative site. A SHANELL block was placed by anesthesia in the preoperative area. The patient was then brought to the operating room and given preoperative antibiotics intravenously. 1 g of Tranexamic acid was also given intravenously. A general anesthetic was administered by the anesthesia department. The patient was then placed on the [place] table with the bony prominences well-padded. The hip area was then prepped with a ChloraPrep solution and draped in the usual sterile fashion. A universal timeout was then performed, which confirmed the patient's name, surgical site, ALLERGIES, and procedure being performed on the consent. Next the incision site was located at 1 cm distal and 4 cm lateral to the anterior superior iliac spine. The skin and subcutaneous tissues were sharply incised. Incision was carefully dissected down to the fascia overlying the tensor fascia judith muscle. This fascia was then incised in line with the muscle fibers. Care was taken to stay laterally in order to avoid injuring the lateral femoral cu taneous nerve. Next, using blunt finger dissection, the tensor fascia judith muscle was dissected off its investing fascia. The muscle was then carefully retracted laterally with a cobra retractor over the lateral neck of the femur. Next, the circumflex vessels were identified and cauterized using the Aquamantis device. The anterior hip capsule was then exposed. The capsule was then opened and an inverted T fashion. The retractors were then placed intracapsularly. The retractors were maintained intracapsular throughout the procedure. The proximal femur was then visualized. Fluoroscopic x-rays were then taken in order to evaluate the preoperative leg lengths. A small amount of traction was placed on the leg. The femoral neck was then osteotomized at the appropriate level above the lesser trochanter. A small wedge of bone was then removed from the remaining femoral head. Next, using a corkscrew the femoral head was removed from the acetabulum. On gross visual inspection, the femoral head had complete loss of articular cartilage and multiple periarticular osteophytes. The femoral head was then measured. Attention was then turned to the acetabulum. The acetabulum was exposed and any remaining labrum was excised. Sequential reaming of the acetabulum was performed using fluoroscopic guidance until there was a good bed of bleeding cancellus bone. When the appropriate size was reached, a trial was then placed. The position and fit of the trial was checked with fluoroscopy. The trial was then removed. Then, using fluoroscopic guidance, the final implant was impacted at 20 of anteversion and 40 of abduction, and fully seated in the acetabulum. 2 screws were then placed in the acetabulum. Again fluoroscopy was used to check position of the screws. Next, the liner was then impacted, with a 20 elevated liner located in the anterior superior quadrant. Component locking was confirmed. Attention was then directed to the femur. With the aid of the [place] table, the femur was externally rotated to approximately 130, extended, and adducted under the opposite leg. A side hook was then placed under the proximal femur, and the side hook elevator was used to elevate the proximal femur while releasing the capsule. Retractors were then placed. A capsular release was performed, as well as a release of the conjoined tendon, which afforded excellent visua lization of the proximal femur. Next, a box osteotome was used to lateralize the proximal femur. A replenishment merchandising associate was then used to locate the femoral canal. Sequential broaching was then performed with appropriate size which afforded excellent fixation in the proximal femur. A trial was then placed with appropriate head and neck, and the hip was gently reduced with the aid of the [place] table. Fluoroscopy was then used to check position of the components, as well as to evaluate the leg lengths and offset. The leg lengths and offset were measured as closely as possible to ensure stability of the hip. The hip was then gently dislocated and the trials were then removed. Final implants were then impacted and the hip was again reduced. Final fluoroscopic x-rays confirmed that the components were in anatomic position. The leg lengths and offset were measured and were found to coincide with the trial measurements. The hip was also taken through range of motion, and found to be stable. The hip was then copiously irrigated with antibiotic solution with pulsatile lavage. The hip was then irrigated with Irrisept solution. The soft tissues were then injected with a ropivacaine solution. A second dose of 1 g of Tranexamic acid was also given intravenously. The fascia was then closed with 2-0 strata fix suture. The subcutaneous tissue was closed with 3-0 Vicryl. The subcuticular tissue was closed with 3-0 moncryl suture. The skin was then closed with Exofin skin glue. After the glue and dried, and Optifoam silver impregnated dressing was applied. The patient was then transferred to the recovery room in stable condition. The practice assistant AGNES Dacosta was required due to the complexity of surgery, and the need for skilled food and nutrition services assistant for positioning, draping, exposure, retraction, and closure of the wound.
[2024-10-07] MEDS ORDERED: HYDROmorphone 0.5 MG/0.5 ML SYRINGE IVP PRN ×3 (08:37)
[2024-10-07] MEDS ORDERED: MAGNESIUM HYDROXIDE 2,400 MG/30 ML CUP PO PRN (08:37)
[2024-10-07] MEDS ORDERED: NALOXONE 0.4 MG/ML 1 ML VIAL IV PRN (08:37)
[2024-10-07] MEDS ORDERED: ONDANSETRON 4 MG/2 ML VIAL IVP PRN (08:37)
[2024-10-07 08:38] VITALS: TEMP 97.1
[2024-10-07] MEDS ORDERED: HYDROcodone/APAP 7.5-325MG 1 EACH TAB PO PRN ×2 (08:39)
[2024-10-07] MEDS ORDERED: SODIUM CHLORIDE 0.9% 1,000 ML IV SCH (08:45)
[2024-10-07] MEDS: HYDROmorphone 0.5 MG/0.5 ML SYRINGE IVP PRN (08:55)
--- NOTE | 2024-10-07 09:03 | FL ---
EXAMINATION TYPE: FL guidance operating room, XR Hip Limited LT DATE OF EXAM: 10/07/2024 8:35 AM COMPARISON: Pre Operative Images if available both CT/MRI or plain film CLINICAL INDICATION: Male, 69 years old with history of Left Hip-Ant; TECHNIQUE: FL guidance operating room, XR Hip Limited LT, multiple fluoroscopic images provided for p rocedure. Total fluoroscopy time: 5.48 seconds Total submitted images to PACS: 6 DAP: 1.6264 mGym2 Gycm2 uGym2 cGycm2 or equivalent. FINDINGS: Fluoroscopic images during internal fixation/arthroplasty demonstrate hardware in appropriate positio n. Hardware appears intact. No immediate complication identified. IMPRESSION: 1. No evidence for intraoperative complication. 2. Please see the operative/procedural note for further details. [facility], , 10/07/2024 8:50 AM
[2024-10-07 11:36] VITALS: RESP 18
[2024-10-07 12:20] VITALS: BP 141/74; PULSE 63
[2024-10-07] MEDS ORDERED: SENNOSIDES-DOCUSATE SODIUM 1 EACH TAB PO SCH (21:00)
[2024-10-07] MEDS ORDERED: ASPIRIN 81 MG PO SCH (21:00)
--- NOTE | 2024-10-09 14:08 | XR ---
ADDENDUM EXAMINATION TYPE: XR Hip Limited LT DATE OF EXAM: 10/07/2024 8:35 AM COMPARISON: fluoroscopic images CLINICAL INDICATION: Male, 69 years old with history of Left Hip-Ant; PHH, pain TECHNIQUE: FL guidance operating room, XR Hip Limited LT; Frontal view FINDINGS: Post arthroplasty changes, hardware is intact, alignment is appropriate. No evidence of fracture. Postoperative changes of the soft tissues with subcutaneous gas. No evidence of any acute osseous pathology or joint dislocation. DAP: 1.6264 mGym2 Gycm2 uGym2 cGycm2 or equivalent. IMPRESSION: Hip arthroplasty with hardware intact and in appropriate alignment. No acute fracture. [facility], Workstation: [employer], 10/07/2024 9:05 AM Addendum Dictated By:Horace Hinton DO Addendum Signed By: <Electronically signed by Horace Hinton DO in [place]> Signed Date/Time: 10/07/24 0908 EXAMINATION TYPE: FL guidance operating room, XR Hip Limited LT DATE OF EXAM: 10/07/2024 8:35 AM COMPARISON: Pre Operative Images if available both CT/MRI or plain film CLINICAL INDICATION: Male, 69 years old with history of Left Hip-Ant; TECHNIQUE: FL guidance operating room, XR Hip Limited LT, multiple fluoroscopic images provided for procedure. Total fluoroscopy time: 5.48 seconds Total submitted images to PACS: 6 DAP: 1.6264 mGym2 Gycm2 uGym2 cGycm2 or equivalent. FINDINGS: Fluoroscopic images during internal fixation/arthroplasty demonstrate hardware in appropriate position. Hardware appears intact. No immediate complication identified. IMPRESSION: 1. No evidence for intraoperative complication. 2. Please see the operative/procedural note for further details. [facility], , 10/07/2024 8:50 AM Dictated By: Horace Hinton DO Signed By: <Electronically signed by Horace Hinton DO in [place]> 10/07/24 0903 ML 10/07/24 0850 Exam Start:0715; 0850 Exam Stop:0834; 0902 MTDD
== END 2024-10-07 12:40 | disposition home health service (06) ==
LOC: OR 05:31
PROVIDERS: ATTEND Orthopaedic Surgery
DX: M16.12 Unilateral primary osteoarthritis, left hip (principal); C64.2 Malignant neoplasm of left kidney, except renal pelvis; K63.5 Polyp of colon; I10 Essential (primary) hypertension; E78.5 Hyperlipidemia, unspecified; E07.9 Disorder of thyroid, unspecified; F41.9 Anxiety disorder, unspecified; F32.A Depression, unspecified; Z01.818 Encounter for other preprocedural examination; Z88.0 Allergy status to penicillin; Z91.040 Latex allergy status; Z91.030 Bee allergy status; Z79.02 Long term (current) use of antithrombotics/antiplatelets; Z79.899 Other long term (current) drug therapy
CPT/HCPCS: 27130; 97161; 64473; 73501; C1776; J2250; J0330; J1100; J0690 ×2; J2405; J2003; J3010; J2795; J2704; J1171; 64999